=== PATIENT | male | born 1950 | race Caucasian/White ===

== ENCOUNTER 2018-09-08 19:42 | Emergency (ER) | payer SELFPAY ==
[2018-09-08 19:51] VITALS: BP 161/83; PULSE 83; RESP 20; TEMP 98.1; O2SAT 99
--- NOTE | 2018-09-08 20:51 | C.PDOC ---
History Of Present Illness 67 year old male with a history of right knee pain for months presents to the emergency department with complaints of right knee. Patient states that today his pain is not improving wit ibuprofen. He denies trauma, weakness, or numbness. Patient states that he has seen his PMD several times for the same complaint. Time Seen by Provider: 09/08/18 20:03 Chief Complaint (Nursing): Lower Extremity Problem/Injury History Per: Patient History/Exam Limitations: no limitations Onset/Duration Of Symptoms: Hrs Current Symptoms Are (Timing): Still Present Past Medical History Reviewed: Historical Data, Nursing Documentation, Vital Signs Vital Signs: Last Vital Signs Temp 98.1 F 09/08/18 19:48 Pulse 83 09/08/18 19:48 Resp 20 09/08/18 19:48 BP 161/83 H 09/08/18 19:48 Pulse Ox 99 09/08/18 19:48 - Medical History PMH: No Chronic Diseases Surgical History: No Surg Hx Family History: States: No Known Family Hx - Social History Hx Alcohol Use: No Hx Substance Use: No - Immunization History Hx Tetanus Toxoid Vaccination: No Hx Influenza Vaccination: Yes Hx Pneumococcal Vaccination: No Review Of Systems Except As Marked, All Systems Reviewed And Found Negative. Constitutional: Negative for: Fever, Chills Musculoskeletal: Positive for: Leg Pain (right knee) Neurological: Negative for: Weakness, Numbness Physical Exam - Physical Exam Appears: Well, Non-toxic, No Acute Distress Skin: Normal Color, Warm, Dry Head: Atraumatic, Normacephalic Neck: Normal, Supple Extremity: Normal ROM (at the right knee), No Pedal Edema, No Calf Tenderness (or calf swelling), Swelling (to the right knee with bogginess), Other (Varicose veins present to the lower extremities. No erythema. No warmth. ) Extremity: Bilateral: Atraumatic, Normal Color And Temperature Pulses: Left Dorsalis Pedis: Normal, Right Dorsalis Pedis: Normal Neurological/Psych: Oriented x3, Normal Motor, Normal Sensation Gait: Steady ED Course And Treatment O2 Sat by Pulse Oximetry: 99 (RA) Pulse Ox Interpretation: Normal Medical Decision Making Medical Decision Making: Plan: Ultram 50mg PO Pt is fully ambulatory, placed in knee brace for support and advised PMD follow up Disposition Counseled Patient/Family Regarding: Diagnosis, Need For Followup - Disposition Referrals: [facility] [Outside] Disposition: HOME/ ROUTINE Disposition Time: 20:47 Condition: STABLE Additional Instructions: USE KNEE BRACE FOR SUPPORT TAKE TRAMADOL IF SEVERE PAIN RETURN TO ER IF WORSE Prescriptions: traMADol [Ultram] 50 mg PO TID #15 tab Instructions: Knee Pain (DC) Forms: [facility] ([place]) - Clinical Impression Clinical Impression: Arthralgia of knee, right - PA / [employer] / Resident Statement MD/DO has reviewed & agrees with the documentation as recorded. - Scribe Statement The provider has reviewed the documentation as recorded by the Scribe (Arjun Dunne) All medical record entries made by the Scribe were at my direction and personally dictated by me. I have reviewed the chart and agree that the record accurately reflects my personal performance of the history, physical exam, medical decision making, and the department course for this patient. I have also personally directed, reviewed, and agree with the discharge instructions and disposition.
== END 2018-09-08 20:58 | disposition home or self-care (01) ==
LOC: C.ER 19:42
DX: M25.561 Pain in right knee (principal)